=== PATIENT | male | born 1945 | race Caucasian/White ===

== ENCOUNTER → 2017-10-27 | Outpatient (CLI) | payer MEDICARE ==
[~2017-10-27] MED LIST: MOBIC7.5 MG PO; MULTI-VITAMIN1 EAC4 PO; NOHOMEMEDS; VICODIN,LORT1 TABLET PO; WELCHOL625 MG PO
== END | disposition home or self-care (01) ==
LOC: CDC 11:55
DX: Z01.810 Encounter for preprocedural cardiovascular examination (principal); K63.89 Other specified diseases of intestine
CPT/HCPCS: 93000

== ENCOUNTER 2017-10-28 21:36 | Inpatient (IN) | payer OTHER, MEDICARE ==
[~2017-10-28] VITALS: Ht 175.3 cm; Wt 89.4 kg
[2017-10-29 09:07] VITALS: BP 180/90
[2017-10-29 14:40] VITALS: BP 173/84
[2017-10-29 19:54] VITALS: BP 161/81
[2017-10-29 23:35] VITALS: BP 118/57
[2017-10-30] VITALS (7 sets, daily range): BP systolic 123–176; BP diastolic 57–89
[2017-10-30 06:54] LABS: HEMATOCRIT 36.3 % (38.0-50.0); MCHC 33.9 G/DL (30.0-36.0); MCV 94.5 FL (86-99); PLATELET COUNT 218 K/uL (156-360); RBC DIS.WIDTH-SD 48.4 % (39-53); WHITE BLOOD COUNT 14.5 K/uL (4.1-10.2)
[2017-10-30 06:55] LABS: HEMOGLOBIN 12.3 G/DL (12.5-16.6); RED BLOOD COUNT 3.84 M/uL (4.00-5.50)
[2017-10-30 07:22] LABS: CHLORIDE 104 MEQ/L (99-109); CREATININE 0.7 MG/DL (0.6-1.3); GFR ESTIMATE (CALCULATED) > 59 mL/min/ (58.99-99999); GLUCOSE 133 mg/dL (70-99); MAGNESIUM 1.9 mg/dl (1.3-2.7); PHOSPHORUS 2.7 mg/dL (2.5-4.9); POTASSIUM 4.4 MEQ/L (3.7-5.4); SODIUM 138 MEQ/L (136-147); UREA NITROGEN (BUN) 13 mg/dL (9-23)
[2017-10-31] VITALS: BP 132/77; BP 145/78
[2017-10-31 03:20] VITALS: BP 153/75
[2017-10-31 07:32] VITALS: BP 151/81
[2017-10-31 07:35] VITALS: BP 114/69
[2017-10-31] MEDS ORDERED: NORCO 5/3251 TABLET PO (11:52)
[2017-10-31 12:35] LABS: CHLORIDE 104 MEQ/L (99-109); CREATININE 0.6 MG/DL (0.6-1.3); GFR ESTIMATE (CALCULATED) > 59 mL/min/ (58.99-99999); GLUCOSE 128 mg/dL (70-99); POTASSIUM 4.1 MEQ/L (3.7-5.4); SODIUM 139 MEQ/L (136-147); UREA NITROGEN (BUN) 12 mg/dL (9-23)
[2017-10-31 12:42] LABS: HEMATOCRIT 39.4 % (38.0-50.0); HEMOGLOBIN 13.2 G/DL (12.5-16.6); MCH 32.3 PG (29.0-34.0); MCHC 33.5 G/DL (30.0-36.0); MCV 96.3 FL (86-99); PLATELET COUNT 214 K/uL (156-360); RBC DIS.WIDTH-CV 13.9 % (11.8-14.6); RBC DIS.WIDTH-SD 49.4 % (39-53); RED BLOOD COUNT 4.09 M/uL (4.00-5.50); WHITE BLOOD COUNT 11.3 K/uL (4.1-10.2)
[2017-10-31 15:55] VITALS: BP 166/88
[2017-11-01 00:07] VITALS: BP 186/90
[2017-11-01 03:06] VITALS: BP 178/90
[2017-11-01 06:00] VITALS: BP 158/93
[2017-11-01 07:06] LABS: HEMATOCRIT 39.6 % (38.0-50.0); HEMOGLOBIN 13.1 G/DL (12.5-16.6); MCH 31.4 PG (29.0-34.0); MCHC 33.1 G/DL (30.0-36.0); PLATELET COUNT 226 K/uL (156-360); RBC DIS.WIDTH-CV 13.4 % (11.8-14.6); RBC DIS.WIDTH-SD 47.5 % (39-53); RED BLOOD COUNT 4.17 M/uL (4.00-5.50); WHITE BLOOD COUNT 10.7 K/uL (4.1-10.2)
[2017-11-01 07:26] LABS: CHLORIDE 102 MEQ/L (99-109); CREATININE 0.8 MG/DL (0.6-1.3); GFR ESTIMATE (CALCULATED) > 59 mL/min/ (58.99-99999); GLUCOSE 122 mg/dL (70-99); POTASSIUM 3.9 MEQ/L (3.7-5.4); SODIUM 139 MEQ/L (136-147); UREA NITROGEN (BUN) 11 mg/dL (9-23)
== END 2017-11-01 12:37 | disposition home or self-care (01) | DRG 331 ==
LOC: ENRESERV 21:36 → 2SOUTH 10-29 07:26 → 2EAST 10-29 07:26 → EDSTATUS 10-29 08:00 → 2SOUTH 10-29 08:02 → ENRESERV 10-29 11:54 → SDC 10-29 14:09 → 2EAST 10-29 14:35
PROVIDERS: Physician Assistant; Surgery
PROC: 0DTF0ZZ Resection of Right Large Intestine, Open Approach (ICD-10-PCS; principal; 2017-10-29)
DX: D12.0 Benign neoplasm of cecum (principal); E78.00 Pure hypercholesterolemia, unspecified; Z23 Encounter for immunization; Z85.820 Personal history of malignant melanoma of skin; Z86.010 Personal history of colon polyps
CPT/HCPCS: 80048; 83735; 84100; 85027; 86850; 86900; 86901; 88305; 88309; 90686; 93000; G0008; J1100; J1335; J2001; J2250; J2405; J3010; J3475; J3480; J7050; S0020; S0028